=== PATIENT | female | born 1980 | race Caucasian/White ===

== ENCOUNTER → 2020-01-27 16:21 | Outpatient (CLI) | payer OTHER, SELFPAY ==
--- NOTE | ~2020-01-27 | MM_ITS ---
EXAMINATION: MM screening [facility] w evi HISTORY: Screening TECHNIQUE: Craniocaudal and mediolateral oblique 3-D tomosynthesis images were obtained and synthetic 2-D images were generated. CAD analysis was submitted and interpreted. COMPARISON: 09/19/2018 BREAST PARENCHYMAL COMPOSITION: There are scattered areas of fibroglandular density. FINDINGS: There is no evidence of suspicious mass, calcification, or architectural distortion to sugg est malignancy in either breast. There has been no suspicious interval change. IMPRESSION: 1. No mammographic evidence of malignancy. 2. Recommend routine screening mammography in one year. BI-RADS Category 1: Negative Reviewed, dictated and finalized at location A.
== END ==
PROVIDERS: Visit Provider Obstetrics & Gynecology
DX: Z12.31 Encounter for screening mammogram for malignant neoplasm of breast (principal)
CPT/HCPCS: 77063; 77067

== ENCOUNTER → 2021-07-04 16:17 | Outpatient (CLI) | payer BC, SELFPAY ==
--- NOTE | ~2021-07-04 | MM_ITS ---
EXAMINATION: MM screening [facility] w evi HISTORY: Screening mammogram, family history of breast cancer in her mother. TECHNIQUE: Craniocaudal and mediolateral oblique 3-D tomosynthesis images were obtained and synthetic 2-D images were generated. CAD analysis was submitted and interpreted. COMPARISON: 01/27/2020, 09/19/2018 BREAST PARENCHYMAL COMPOSITION: There are scattered areas of fibroglandular density. FINDINGS: There is no evidence of suspicious mass, calcification, or architectural distortion to sugg est malignancy in either breast. There has been no suspicious interval change. IMPRESSION: 1. No mammographic evidence of malignancy. 2. Recommend routine screening mammography in one year. BI-RADS Category 1: Negative Reviewed, dictated and finalized at location A. [employer]
== END ==
PROVIDERS: PCP Obstetrics & Gynecology; Visit Provider Obstetrics & Gynecology
DX: Z12.31 Encounter for screening mammogram for malignant neoplasm of breast (principal)
CPT/HCPCS: 77063; 77067

== ENCOUNTER → 2023-08-01 10:00 | Outpatient (CLI) | payer BC, SELFPAY ==
--- NOTE | ~2023-08-01 | MM_ITS ---
EXAMINATION: MM screening [facility] BI w evi HISTORY: Screening TECHNIQUE: Craniocaudal and mediolateral oblique 3-D tomosynthesis images were obtained and synthetic 2-D images were generated. CAD analysis was submitted and interpreted. COMPARISON: Comparison to multiple prior studies sequentially, with oldest reviewed study dated 09/19. BREAST PARENCHYMAL COMPOSITION: Not dense: There are scattered areas of fibroglandular density. FINDINGS: There is no evidence of suspicious mass, calcification, or architectural distortion to sugg est malignancy in either breast. There has been no suspicious interval change. IMPRESSION: 1. No mammographic evidence of malignancy. 2. Recommend routine screening mammography in one year. BI-RADS Category 1: Negative Reviewed, dictated and finalized at location A. T ATTENDANT
== END ==
PROVIDERS: PCP Obstetrics & Gynecology; Visit Provider Obstetrics & Gynecology
DX: Z12.31 Encounter for screening mammogram for malignant neoplasm of breast (principal)
CPT/HCPCS: 77063; 77067

== ENCOUNTER 2024-08-20 13:20 | Outpatient (CLI) | payer BC, SELFPAY ==
--- NOTE | ~2024-08-20 | MM_ITS ---
EXAMINATION: MM screening [facility] BI w evi HISTORY: Screening TECHNIQUE: Craniocaudal and mediolateral oblique 3-D tomosynthesis images were obtained and synthetic 2-D images were generated. CAD analysis was submitted and interpreted. COMPARISON: Comparison to multiple prior studies sequentially, with oldest reviewed study dated 09/19. BREAST PARENCHYMAL COMPOSITION: Not dense: There are scattered areas of fibroglandular density. FINDINGS: There is no evidence of suspicious mass, calcification, or architectural distortion to sugg est malignancy in either breast. There has been no suspicious interval change. IMPRESSION: 1. No mammographic evidence of malignancy. 2. Recommend routine screening mammography in one year. BI-RADS Category 1: Negative Reviewed, dictated and finalized at location B.
== END 2024-08-20 13:21 | disposition home or self-care (01) ==
LOC: MICIMG 13:21
PROVIDERS: PCP Obstetrics & Gynecology; Visit Provider Obstetrics & Gynecology
DX: Z12.31 Encounter for screening mammogram for malignant neoplasm of breast (principal)
CPT/HCPCS: 77063; 77067

== ENCOUNTER 2025-03-23 15:14 | Outpatient (CLI) | payer BC, SELFPAY ==
--- NOTE | ~2025-03-23 | CT_ITS ---
EXAMINATION: CT facial bones wo/w con COMPARISON: None HISTORY: localized swelling facial features, lymph nodes TECHNIQUE: Axial images were obtained with IV contrast. Sagittal, coronal reconstruction images were obtained from the axial views. Omnipaque 370, [address] scan performed using dose optimization techniques including the following automated exposure control; adjustment of mA and/or kV; use of iterative reconstruction technique. Automatic exposure control was used to reduce radiation dose. Permanent radiation dose record is archived to PACS. FINDINGS: Nasal bones, anterior maxillary sinus [place], zygomatic arches and temporomandibular joints intact. No significant sinusitis Visualized brain parenchyma unremarkable. Optic globes unremarkable. A preseptal swelling. No thickening of the prevertebral space or asymmetry of the airway. No asymmetry of the base of the tongue, the tonsillar tissue of the parapharyngeal spaces. Visualized submandibular glands unremarkable. Visualized parotid glands unremarkable There is no jugulodigastric, posterior cervical lymphadenopathy identified. Within the subcutaneous tissues. There is no abscess identified.1 no significant dental disease appreciated. IMPRESSION: No significant lymphadenopathy identified. If symptoms persist MRI is suggested to assess Reviewed, dictated and finalized at location P.
== END 2025-03-23 15:15 | disposition home or self-care (01) ==
LOC: MICIMG 15:15
DX: R22.0 Localized swelling, mass and lump, head (principal)
CPT/HCPCS: 70488; Q9967

== ENCOUNTER 2025-05-18 13:42 | Outpatient (CLI) | payer BC, SELFPAY ==
--- NOTE | ~2025-05-18 | MR_ITS ---
EXAM/PROCEDURE: MR orbits face neck wo/w con HISTORY: Localized swelling, mass and lump, head COMPARISON: Facial CT from March 23, 2025 TECHNIQUE: Pre and postcontrast multiplanar MRI of the face performed. FINDINGS: Scattered subcutaneous nodular appearing foci in the perioral subcutaneous soft tissues can be seen on axial T2-weighted sequences, images 11 and 12 series 7. The lesions demonstrate enhancement on postcontrast series. The lesions are hypointense on T1-weighted nonfat sat suppressed images but hyperintense on T1- weighted fat saturation sequences. The largest nodule measures approximately 6 x 6 mm on the right side in the anterolateral margin of the maxillary subcutaneous soft tissues, image 12 series 3. Similarly area such as on the left side same image, the foci appear confluent. The lesions appear similar in size compared to the March 2025 exam. No drainable fluid collection. No discrete mass. The remainder the exam is unremarkable. IMPRESSION: Subcutaneous enhancing nodular changes may represent fibromatous reaction or other benign nonspecific inflammatory process. No discrete mass or drainable fluid collection. Overall size and appearance do not appear significantly changed from the March exam given variation in modality. RECOMMENDATION: Correlate with follow-up critical presentation and exam. Dermatologic consultation if not already obtained. If lesions failed to resolve or if patient's symptoms persist or worsen, repeat MRI recommended. Reviewed, dictated and finalized at location A. OGRAPHER ANGIOGRAM IMPRESSION: Subcutaneous enhancing nodular changes may represent fibromatous re action or other benign nonspecific inflammatory process. No discrete mass or dr ainable fluid collection. Overall size and appearance do not appear significant ly changed from the March exam given variation in modality. RECOMMENDATION: Correlate with follow-up critical presentation and exam. Dermat ologic consultation if not already obtained. If lesions failed to resolve or if patient's symptoms persist or worsen, repeat MRI recommended.
== END 2025-05-18 13:43 | disposition home or self-care (01) ==
LOC: MICIMG 13:43
DX: R22.0 Localized swelling, mass and lump, head (principal)
CPT/HCPCS: 70543; A9577